=== PATIENT | male | born 1960 | race Caucasian/White ===

== ENCOUNTER 2017-01-31 17:17 | Observation (INO) | payer OTHER ==
[~2017-01-31] VITALS: Ht 172.7 cm; Wt 98.7 kg
--- NOTE | ~2017-01-31 | HP ---
ADMIT: 01/31/2017 RM/LOC: 6[address] [facility] MR#: [id number] [facility]#: [id number] [address] [address] [place] [id number] [place] [address] History and Physical SEX: M AGE: 56 : 1960 DATE OF SERVICE: 01/31/2017 PREOPERATIVE DIAGNOSIS: Acute appendicitis. HISTORY OF PRESENT ILLNESS: This patient is a 56-year-old male, actually said he did not really start to feeling sick and pain until about 11 today. Went up, was seen in [place]. They did a CT scan that showed acute appendicitis. Transferred down here, met him. No doubt, he had rebound in right lower quadrant. Clinically sounded like CT was positive and so as I discussed with him, the plan will be to do a laparoscopic, possible open appendectomy. The risks, benefits, possible complications, and alternatives discussed, he understood and wished to proceed. PAST MEDICAL HISTORY: Denied any other significant past medical history. He has had previous knee surgery, a previous staph infection in his knee, and a shoulder surgery. MEDICATIONS: Denies any medicines. ALLERGIES: DENIES ANY ALLERGIES. SOCIAL HISTORY: Denies significant tobacco, alcohol, or illicit drugs. FAMILY HISTORY: Otherwise, noncontributory. REVIEW OF SYSTEMS: Were positive for just not feeling well, pain in the right lower quadrant. Otherwise all other review of systems completely negative. PHYSICAL EXAMINATION: GENERAL: He is alert, he is oriented. He is in no significant distress. He is a healthy-appearing 56-year-old. HEENT: His sclerae are nonicteric. His extraocular muscles are intact. CHEST: Clear anteriorly without wheezes, rhonchi. HEART: Regular rate and rhythm without significant murmurs. ABDOMEN: Soft. Positive bowel sounds. No significant diffuse peritoneal signs, but rebound in right lower quadrant. EXTREMITIES: Without significant clubbing, cyanosis, or edema. ASSESSMENT: Acute appendicitis. PLAN: Laparoscopic appendectomy. Donaldo Frias MD/ aydin JOB #: [id number] CC: Donaldo Frias, Attending Physician ADMIT: 01/31/2017 RM/LOC: 6[address] [facility] MR#: [id number] [facility] [address] [address] [facility] [id number] [facility] [address] [place] [address] History and Physical SEX: M AGE: 56 : 1960 Rachelle Mcgraw MD, Family Physician
--- NOTE | ~2017-01-31 | OR ---
ADMIT: 01/31/2017 RM/LOC: 6[address] [facility] MR#: [id number] [facility]#: [id number] [address] [address] [place] [address] [place] [address] Operative/Delivery Room Report SEX: M AGE: 56 : 1960 SURGERY DATE: 01/31/2017 SURGEON: Donaldo Frias MD PREOPERATIVE DIAGNOSIS: Acute appendicitis. POSTOPERATIVE DIAGNOSIS: Acute appendicitis. FINAL PATHOLOGY: Pending. PROCEDURE: Laparoscopic appendectomy. ANESTHESIA: General endotracheal tube anesthesia. ESTIMATED BLOOD LOSS: 20 mL or less. SPECIMEN: Appendix to Pathology. INDICATION FOR PROCEDURE: Please see H and P. After the risks, benefits, possible complications, and informed consent had been obtained, the patient was taken back to the operating room, underwent general endotracheal tube anesthesia and the surgical field was prepped and draped in a sterile manner. An infraumbilical incision was made. The Veress needle was inserted. The abdomen was insufflated with CO2. Once there was adequate insufflation, a 5- mm port was placed. Camera was placed through this port site. Under direct visualization, I then placed a 5 mm suprapubic and a 12 mm left lower quadrant port. The appendix was seen in picture 1 was definitely inflamed, thickened. Made a window in the mesoappendix, came across the base of the Endo TERESA stapler. I placed another load across the mesoappendix x2. It was then removed, placed in EndoCatch bag as seen in picture #3. It was removed through the left lower quadrant port site. Irrigated the wound and removed as much irrigation as possible. Staple lines appeared dry as seen in picture 4. I injected 0.5% Marcaine for pain control in the incision sites. Closed the fascia of the left lower quadrant port site with an 0 Polysorb suture using the suture passer. All the ports were removed. The skin was all closed with 4-0 Monocryl. He tolerated it well. He was being extubated when I left the room. He was in stable and satisfactory condition. Donaldo Frias MD/ aydin JOB #: [id number] CC: Donaldo Frias, Attending Physician Rachelle Mcgraw MD, Family Physician
[2017-02-02] MEDS ORDERED: NORCO 5-325 TA1 EACH PO (17:58)
== END 2017-02-01 09:38 | disposition home or self-care (01) ==
LOC: WOR 17:17 → 6PED 20:10
PROVIDERS: ADMIT Surgery
PROC: 0DTJ4ZZ Resection of Appendix, Percutaneous Endoscopic Approach (ICD-10-PCS; principal; 2017-01-31)
DX: K35.80 Unspecified acute appendicitis (principal); E66.9 Obesity, unspecified; M19.90 Unspecified osteoarthritis, unspecified site; Z98.890 Other specified postprocedural states